=== PATIENT | male | born 1965 | race Caucasian/White ===

== ENCOUNTER 2021-04-30 08:20 | Day surgery (SDC) | payer BC ==
[2021-04-29 14:46] LABS: Absolute Lymphocytes (CBC) 1.7 K/uL (0.7-4.9); Basophils % 0.4 % (0-1.3); Hematocrit 42.8 % (39.6-49.0); Lymphocytes % 25.5 % (15.3-44.8); RBC Red Blood Cell Count 4.82 M/uL (4.33-5.43)
[2021-04-30] MEDS ORDERED: Ringers Lactate 1,000 ML IV ONE ×2 (09:10→12:28)
[2021-04-30] MEDS ORDERED: CEFAZOLIN/SWI 1gm 1 GM/10 ML SYR ONE (09:10)
--- NOTE | 2021-04-30 10:20 | P.HP ---
Date of Service: 04/30/21 PC: This 55-year-old male presents for an elective laparoscopic repair of his umbilical hernia. HPC: Patient has noticed a bulge at his umbilicus for the last few months. It has progressively been getting larger and causing increasing pain and discomfort. PSHx: Negative PMHx: Negative Social Hx: No known allergies, does not smoke Sys R: No cough, wheeze, shortness of breath. No chest pain or palpitations. No urinary complaints O/E: Awake alert vital signs are stable HEENT: Normal limits Chest: Air entry equal bilaterally Abd: Incarcerated umbilical hernia [place]: Intact Data: NAD Impression: Painful incarcerated umbilical hernia Plan: I will take you to the operating room for laparoscopic reduction and repair of his incarcerated umbilical hernia. We will use mesh for his repair. The risks of this procedure have been discussed. The possibility of bleeding, infection, injury to bowel and other structures was outlined. The possibility of recurrence, infection, need for further surgeries and procedures was described. He understands and wants to proceed.
[2021-04-30] MEDS ORDERED: propofoL 200 MG/20 ML VIAL IV ONE (10:23)
[2021-04-30] MEDS ORDERED: MIDAZOLAM HCL 2 MG/2 ML INJ ONE (10:24)
[2021-04-30] MEDS ORDERED: LIDOCAINE 1% MPF 5 ML VIAL ONE (10:24)
[2021-04-30] MEDS ORDERED: FENTANYL CITR 100 MCG/2 ML ONE ×2 (10:24→12:07)
[2021-04-30] MEDS ORDERED: ROCURONIUM 50 MG/5 ML VIAL IV ONE (10:24)
[2021-04-30] MEDS ORDERED: BUPIVACAINE 0.5% PF 10 ML VIAL ONE (10:34)
[2021-04-30] MEDS ORDERED: NS 0.9% VIAL 10 ML ONE (11:06)
[2021-04-30] MEDS ORDERED: Phenylephrine HCl 10 MG/ML 1 ML VIAL ONE (11:06)
[2021-04-30] MEDS ORDERED: KETOROLAC 30 MG/ML INJ ONE (11:13)
[2021-04-30] MEDS ORDERED: ONDANSETRON 4 MG/2 ML VIAL ONE (11:24)
[2021-04-30] MEDS ORDERED: GLYCOPYRROLATE 0.2 MG/ML SYR ONE (12:04)
[2021-04-30] MEDS ORDERED: NEOSTIGMINE 1 MG/ML -5 ML ONE (12:05)
--- NOTE | 2021-04-30 12:12 | P.OP ---
Preoperative diagnosis: Incarcerated umbilical hernia Postoperative diagnosis: The same Primary procedure: Laparoscopic reduction and repair of incarcerated umbilical hernia Anesthesia: General Estimated blood loss: Less than 10 cc Specimen: Incarcerated omentum, peritoneal implant Operative Technique: The patient was brought to the operating room and placed supine on the table. After the induction of adequate general anesthesia, Cannon cath was inserted and the patient was prepped with a DuraPrep solution, and draped in usual aseptic manner. A left upper quadrant skin incision was made. This tissue. The Visiport was now used to enter the. Under direct vision we will place a 5 mm trocar in the left on inspection of the peritoneal the omentum going to the anterior abdominal wall this led up to the incarcerated umbilical hernia we could palpate prior to his surgery. Applying outside pressure and bedside traction the distal portion of the distal portion which was sent for histopathology the hernia sac was now grasped, pulled back into the peritoneal cavity parents. The hernial defect was measured. It was a 6 inch piece of mesh was now introduced into the peritoneal cavity. The mesh had been paired with 2 Prolene sutures on the holes. While doing this we noticed a small area right lower quadrant the Endo Close was used to bring up these to chromic sutures elevated the mesh to the anterior abdominal wall, peritoneum and fascia to the structure the level of mesh with we were able to ensure we have the correct surface against the abdominal wall, and the correct service against the GI, tenderness. Mesh now having been centered over our hernia was tacked in place using the capture tacks. It took us to tackers to adequately secure the mesh. While doing this it was also necessary to place a nother trocar in the right lower quadrant to allow us to attach the mesh on its left side. At this point the abdomen was inspected to ensure adequate hemostasis. No other gross pathology was noted. At this point the Endo Catch was used to remove the specimen of the incarcerated omentum that we had removed. Attention was turned back towards the 10 mm trocar site. It was approximated using the Endo Close and an absorbable suture. The pneumoperitoneum was now collapsed, and the suture tied, and the 5 mm trochars removed. [place] were applied to the skin. At the end of the procedure the patient was in a stable condition was sent to the recovery room. Needle sponge instrument count were correct. No drains were placed. Complications: None Transferred to: Recovery Room Condition: Good
[2021-04-30] MEDS ORDERED: HYDROCODONE/APAP 7.5/325 MG TAB ONE (13:44)
[2021-04-30 15:02] VITALS: O2SAT 100
[2021-04-30 15:03] VITALS: BP 122/81; TEMP 98
== END 2021-04-30 14:40 | disposition home or self-care (01) ==
LOC: OR 08:20
PROVIDERS: ATTEND Surgery
PROC: 0WUF4JZ Supplement Abdominal Wall with Synthetic Substitute, Percutaneous Endoscopic Approach (ICD-10-PCS; principal; 2021-04-30 10:00)
DX: K42.0 Umbilical hernia with obstruction, without gangrene (principal); Z20.822 Contact with and (suspected) exposure to COVID-19
CPT/HCPCS: 85025; 36415; 88302; 88304; 49652; U0003; J2704; J2370; J2250; J3010 ×2; J2710; J0690; J7120 ×2; J2405